=== PATIENT | female | born 1970 | race Two or more races ===

== ENCOUNTER 2016-09-26 06:31 | Day surgery (SDC) | payer OTHER ==
--- NOTE | 2016-09-25 13:27 | PREOPHP ---
DATE OF ADMISSION: 09/26/2016 HISTORY OF PRESENT ILLNESS: This 46-year-old patient is admitted for elective pterygium excision of the left eye. The patient has had a growth on the left eye for approximately 7 years which has bee n causing irritation and decrease of vision in that eye. The patient denies prior history of eye di sease or injury. The patient has no positive systemic illnesses. CURRENT MEDICATIONS: Include [id number] Pepcid and Visine as needed. ALLERGIES: THERE ARE NO KNOWN ALLERGIES. PHYSICAL EXAMINATION: Visual acuity with correction is 20/20 in the right eye and 20/400 in the lef t eye. Slit lamp examination shows a large pterygium which extends from the nasal limbus and crosse s the center of the cornea obscuring a significant portion of the pupillary axis in the left eye. A pplanation tonometry is 12 mmHg in both eyes. Examination of the retina is within normal limits. DIAGNOSIS: Pterygium, left eye. PLAN: Pterygium excision with mitomycin C application and conjunctival rotating graft, left eye. T he risks and alternatives to the surgery have been discussed with the patient with specific attentio n made to the potential for a regrowth of the pterygium. The patient understands this and agrees to proceed with the surgery in hopes of having improved visual acuity and greater ocular comfort. Dictated By: TONNY VAZQUEZ/PRABHJOT Conf#: [id number] DID#: [id number]
[2016-09-25 15:06] VITALS: BMI 37.5
[~2016-09-26] VITALS: Ht 152.4 cm; Wt 87.3 kg
[2016-09-26] VITALS (7 sets, daily range): BP systolic 109–129; BP diastolic 69–86; PULSE 74–86; RESP 15–22; Ht 152.4 cm; Wt 87.3 kg
[2016-09-26] MEDS ORDERED: STERILE WATER OP SCH (07:30)
[2016-09-26] MEDS ORDERED: MITOMYCIN OP SCH (07:30)
[2016-09-26] MEDS ORDERED: FAMO20TA18 PO (07:48)
[2016-09-26] MEDS ORDERED: METOCLOPRAMIDE 10 MG INJ IV PRN (08:00)
[2016-09-26] MEDS ORDERED: MEPERIDINE 25 MG INJ IV PRN (08:00)
[2016-09-26] MEDS ORDERED: FENTAnyl 50 MCG/ML VIAL IV PRN ×2 (08:00)
[2016-09-26] MEDS ORDERED: DIPHENHYDRAMINE 50 MG INJ IV PRN (08:00)
[2016-09-26] MEDS ORDERED: ONDANSETRON 4 MG INJ IV PRN (08:00)
[2016-09-26] MEDS ORDERED: MIDAZOLAM 1 MG/ML 2 ML INJ IV PRN (08:00)
[2016-09-26] MEDS ORDERED: BUPIVACAINE 0.25% (MPF) 10 ML 10 ML VIAL ONE (08:25)
[2016-09-26] MEDS ORDERED: TOBRAMYCIN 0.3% 5 ML OPH ONE (08:25)
[2016-09-26] MEDS ORDERED: LIDOCAINE 2%/EPI 30 ML INJ ONE (08:25)
[2016-09-26] MEDS ORDERED: TOBRAMYCIN 0.3% 3.5 GM OPH OINT ONE (09:09)
[2016-09-26] MEDS ORDERED: PROPOFOL 20 ML ONE (09:11)
[2016-09-26] MEDS ORDERED: TOBRAMYCIN/DEXAMETH 3.5 GM OPH OINT LEFT EYE ONE (09:26)
[2016-09-26] MEDS ORDERED: BALANCED SALT SOLN 15 ML OPH IRRIG LEFT EYE ONE (09:28)
[2016-09-26] MEDS ORDERED: ACETAMINOPHEN/CODEINE 5 ML CUP PO PRN (10:30)
--- NOTE | 2016-09-26 10:49 | OPR ---
DATE OF OPERATION: 09/26/2016 PREOPERATIVE DIAGNOSIS: Visually significant pterygium, left eye. POSTOPERATIVE DIAGNOSIS: Visually significant pterygium, left eye. PROCEDURE PERFORMED: Pterygium excision with mitomycin C application and rotating conjunctival clive t, left eye. SURGEON: Tonny Mercedes MD ANESTHESIA: Monitored anesthesia. ANESTHESIOLOGIST: Dr. Zazueta. DESCRIPTION OF PROCEDURE: The patient was brought to the operating room after being seen and evalua agatha in the office for a pterygium that had progressed over a number of years and was covering half o f the visual axis causing the vision in the left eye to decrease to 20/200. The patient also had di scomfort and redness associated with this and had desired to have visual rehabilitation and improvem ent of comfort level and proceed with surgery. The patient was brought to the operating room on an eye gurney, positioned appropriately, attached to electrocardiogram monitor, given oxygen via nasal cannula. After intravenous sedation, the patient then received lidocaine 2% mixed with Marcaine 0.7 5% given in lid block and retrobulbar injection. The patient was then prepped and draped in the usu al sterile manner and a speculum was inserted between the lids of the left eye. Some 2% lidocaine w ith epinephrine was injected beneath the conjunctival of the bed of the pterygium. Then, using Servando as scissors, the conjunctival tail of the pterygium was dissected free from the remaining nasal conj unctiva. The subconjunctival tissue and Tenon's tissue were dissected free to the corneoscleral beltran bus and then using a curved Juniata blade, the head of the pterygium was dissected from the surface o f the cornea and submitted for pathological evaluation. Cautery was applied to the sclera to obtain hemostasis at the corneoscleral limbus. Following this, a inocencia tipped bur was used to korean th e corneal surface from which the pterygium had been excised. After this had been completed, a Weck- Xiomara sponge impregnated with mitomycin C 0.03 solution was placed on bare sclera where the pterygium had previously been and left in place for 1 minute After this was completed, the area was copiously irrigated with balanced salt solution for an additional minute. Following this, additional 2% lidoc juan with epinephrine was injected beneath the superior conjunctiva and using a Olivia scissors, a p eritomy was extended from the incision site superiorly and temporally. Then, following this, dissec tion proceeded superiorly for approximately 4 mm and then the conjunctiva was dissected back towards the nasal quadrant, creating a tongue-like flap which was freed from the underlying Tenon's tissue and sclera. This was rotated into the conjunctival defect from which the pterygium had been excised , using 8-0 Vicryl sutures in an inverted interrupted fashion. A total of 5 sutures were used to at tach the conjunctival flap to the surrounding nasal and inferior conjunctiva. Ends were cut short a fter each suture was tied. When this was completed, it was noted that the graft completely covered the defect. Hemostasis was present and the cornea appeared clear. The speculum was then removed fr om the lids. TobraDex ophthalmic ointment was placed on the surface of the eye and a pressure patch was applied. The patient then left the operating room in satisfactory condition. Dictated By: TONNY VAZQUEZ/PRABHJOT Conf#: [id number] DID#: [id number]
== END 2016-09-26 10:53 | disposition home or self-care (01) ==
LOC: SDS 06:31
PROVIDERS: ATTEND Ophthalmology
DX: H11.002 Unspecified pterygium of left eye (principal); E66.9 Obesity, unspecified; Z68.37 Body mass index [BMI] 37.0-37.9, adult
CPT/HCPCS: 65426; 84703; 88304; J9280; Z7512; Z7610